=== PATIENT | female | born 1985 | race Caucasian/White ===

== ENCOUNTER 2017-05-10 22:07 | Emergency (ER) | payer SELFPAY ==
[2017-05-10 22:13] VITALS: TEMP 97.5
[2017-05-10] MEDS ORDERED: NS 500 ML IV ONE (22:15)
--- NOTE | 2017-05-10 22:15 | EDPHY ---
H & P Stated Complaint: left side CP tightness HPI/ROS: HPI CHIEF COMPLAINT: Leg chest discomfort HISTORY OF PRESENT ILLNESS: Patient very pleasant 31-year-old female she is otherwise healthy, does not take any daily medications she presents to the emergency room with left-sided chest discomfort. Patient reports to me that approximately 8 o'clock or 2 and 0.5 hr ago she was sitting on the couch resting. When all the sudden she took a deep breath in and developed some left- sided chest discomfort. She states hurts worse when you press on her left chest and this this sensation of discomfort that she has. It is reproducible on exam. The pain is located parasternal on the left side. Costochondral region. When you press there does cause pain go down her left arm. It is reproducible on exam. When she takes a deep breath in it causes her discomfort. She denies any hemoptysis. Denies fever denies nausea vomiting or diarrhea. Denies fever. Denies productive cough. Past Medical History: Denies significant medical history except for celiac disease Past Surgical History: Total hysterectomy due to stage IV endometriosis. Does have a half of right ovary left per the patient. Social History: Denies daily use of alcohol or drugs. Occasionally smokes marijuana. Denies tobacco. Family History: Noncontributory ROS REVIEW OF SYSTEMS: A comprehensive 10 point review of systems is otherwise negative aside from elements mentioned in the history of present illness. Exam Constitutional appears well nontoxic in no acute distress triage nursing summary reviewed, vital signs reviewed, awake/alert. Eyes normal conjunctivae and sclera, EOMI, PERRLA. HENT normal inspection, atraumatic, moist mucus membranes, no epistaxis, neck supple/ no meningismus, no raccoon eyes. Respiratory clear to auscultation bilaterally, normal breath sounds, no respiratory distress, no wheezing. Cardiovascular left chest wall: Along the costal sternal region there is reproducible tenderness on exam, when you press rather firmly causes pain to shoot down her left arm, reproducible on exam, rate normal, regular rhythm, no murmur, no edema, distal pulses normal. Gastrointestinal soft, non-tender, no rebound, no guarding, normal bowel sounds, no distension, no pulsatile mass. Genitourinary no CVA tenderness. Musculoskeletal no midline vertebral tenderness, full range of motion, no calf swelling, no tenderness of extremities, no meningismus, good pulses, neurovascularly intact. Skin pink, warm, & dry, no rash, skin atraumatic. Neurologic awake, alert and oriented x 3, AAOx3, moves all 4 extremities equally, motor intact, sensory intact, CN II-XII intact, normal cerebellar, normal vision, normal speech. Psychiatric normal mood/affect. Heme/Lymph/Immune no lymphadenopathy. Differential diagnosis includes but is not limited to: ACS, atypical chest pain , pneumothorax, pneumonia, pulmonary embolism, aortic dissection, congestive heart failure, tumor, musculoskeletal pain, esophageal pain, GERD, peptic ulcer disease, pancreatitis Medical Decision Making: Plan for this patient IV establishment with blood draw , EKG, threat monitoring analyst, chest x-ray, check a troponin D-dimer. Re-evaluate. Re-evaluation: 2225: Patient has declined any pain medicine here in emergency room. Most likely cause of symptoms is musculoskeletal chest wall discomfort. Will obtain chest x-ray to rule out pneumothorax, EKG D-dimer troponin. EKG interpretation by me on record in [employer] system. Impression time of EKG 2222, sinus rhythm rate of 65. No acute ischemic changes specifically no ST elevation. No ST depression. No T-wave abnormalities. Intervals are appropriate. 2329: Patient re-evaluate she has reproducible left anterior chest wall pain on exam. Declined pain medicine here in emergency room she states when she gets home she will take some Aleve. Her workup here in emergency room is been unremarkable she has a nonischemic EKG. A normal troponin a negative D-dimer and a chest x-ray does not show anything acute specifically no pneumothorax. I do feel that she has very little risk factors for cardiovascular disease she does not smoke, she is very young. Clinical presentation is consistent with anterior chest wall musculoskeletal pain. Her workup here in the ER is reassuring. Recommend anti-inflammatories at home. I did discussed return precautions with her. She understands return emergency room she develops worsening pain questions or concerns. This includes worsening pain, shortness of breath or fever. She understands. Source: Patient - Personal History LMP (Females 10-55): Hysterectomy Current Tetanus/Diphtheria Vaccine: No Current Tetanus Diphtheria and Acellular Pertussis (TDAP): No - Medical/Surgical History Hx Asthma: No Hx Chronic Respiratory Disease: No Hx Diabetes: No Hx Cardiac Disease: No Hx Renal Disease: No Hx Cirrhosis: No Hx Alcoholism: No Hx HIV/AIDS: No Hx Splenectomy or Spleen Trauma: No Other PMH: endometriosis stage 4, hysterectomy, - Social History Smoking Status: Never smoked Constitutional: Initial Vital Signs Temperature (C) 36.4 C 05/10/17 22:08 Heart Rate 64 05/10/17 22:08 Respiratory Rate 18 05/10/17 22:08 Blood Pressure 122/68 H 05/10/17 22:08 O2 Sat (%) 93 05/10/17 22:08 O2 Delivery Mode Room Air Allergies/Adverse Reactions: No Known Allergies Allergy (Unverified 05/10/17 22:13) Home Medications: Medication Instructions Recorded Adderall 10 MG (*) 05/10/17 Medical Decision Making - Diagnostics Imaging Results: Imaging Impressions Chest X-Ray 05/10/17 22:16 Impression: Negative frontal chest radiograph. - Data Points Laboratory Results: Laboratory Results 05/10/17 22:30 05/10/17 22:30 05/10/17 05/10/17 05/10/17 22:30 22:30 22:30 WBC RBC Hgb Hct MCV MCH MCHC RDW Plt Count MPV Neut % (Auto) Lymph % (Auto) Hernando % (Auto) Eos % (Auto) Baso % (Auto) Nucleat RBC Rel Count Absolute Neuts (auto) Absolute Lymphs (auto) Absolute Monos (auto) Absolute Eos (auto) Absolute Basos (auto) Absolute Nucleated RBC Immature Gran % Immature Gran # PT 13.1 SEC SEC (12.0-15.0) INR 0.97 (0.83-1.16) APTT 26.7 SEC SEC (23.0-38.0) D-Dimer < 0.27 ug/mLFEU ug/mLFEU (0.00-0.50) Sodium 137 mEq/L mEq/L (135-145) Potassium 4.0 mEq/L mEq/L (3.5-5.2) Chloride 100 mEq/L mEq/L (97-110) Carbon Dioxide 25 mEq/l mEq/l (22-31) Anion Gap 12 mEq/L mEq/L (8-16) BUN 11 mg/dL mg/dL (7-23) Creatinine 0.6 mg/dL mg/dL (0.6-1.0) Estimated GFR > 60 Glucose 88 mg/dL mg/dL (70-100) Calcium 10.0 mg/dL mg/dL (8.5-10.4) Magnesium 2.0 mg/dL mg/dL (1.6-2.3) Total Bilirubin 0.4 mg/dL mg/dL (0.1-1.4) Conjugated Bilirubin 0.2 mg/dL mg/dL (0.0-0.5) Unconjugated Bilirubin 0.2 mg/dL mg/dL (0.0-1.1) AST 25 IU/L IU/L (14-46) ALT 30 IU/L IU/L (9-52) Alkaline Phosphatase 64 IU/L IU/L (38-126) Creatine Kinase 186 IU/L H IU/L (0-156) CK-MB (CK-2) Fraction 4.00 ng/mL H ng/mL (0.00-3.19) CK-MB (CK-2) % 2.2 % % (0.0-4.0) Creatine Kinase Interp NEGATIVE (NEGATIVE) Troponin I < 0.012 ng/mL ng/mL (0.000-0.034) NT-Pro-B Natriuret Pep 62 pg/mL pg/mL (0-125) Total Protein 7.1 g/dL g/dL (6.3-8.2) Albumin 4.6 g/dL g/dL (3.5-5.0) Lipase 93 IU/L IU/L (23-300) Beta HCG, Qual NEGATIVE 05/10/17 22:30 WBC 7.67 10^3/uL 10^3/uL (3.80-9.50) RBC 4.69 10^6/uL 10^6/uL (4.18-5.33) Hgb 14.7 g/dL g/dL (12.6-16.3) Hct 42.4 % % (38.0-47.0) MCV 90.4 fL fL (81.5-99.8) MCH 31.3 pg pg (27.9-34.1) MCHC 34.7 g/dL g/dL (32.4-36.7) RDW 11.9 % % (11.5-15.2) Plt Count 326 10^3/uL 10^3/uL (150-400) MPV 9.7 fL fL (8.7-11.7) Neut % (Auto) 66.1 % % (39.3-74.2) Lymph % (Auto) 23.6 % % (15.0-45.0) Hernando % (Auto) 8.1 % % (4.5-13.0) Eos % (Auto) 0.9 % % (0.6-7.6) Baso % (Auto) 1.0 % % (0.3-1.7) Nucleat RBC Rel Count 0.0 % % (0.0-0.2) Absolute Neuts (auto) 5.07 10^3/uL 10^3/uL (1.70-6.50) Absolute Lymphs (auto) 1.81 10^3/uL 10^3/uL (1.00-3.00) Absolute Monos (auto) 0.62 10^3/uL 10^3/uL (0.30-0.80) Absolute Eos (auto) 0.07 10^3/uL 10^3/uL (0.03-0.40) Absolute Basos (auto) 0.08 10^3/uL 10^3/uL (0.02-0.10) Absolute Nucleated RBC 0.00 10^3/uL 10^3/uL (0-0.01) Immature Gran % 0.3 % % (0.0-1.1) Immature Gran # 0.02 10^3/uL 10^3/uL (0.00-0.10) PT INR APTT D-Dimer Sodium Potassium Chloride Carbon Dioxide Anion Gap BUN Creatinine Estimated GFR Glucose Calcium Magnesium Total Bilirubin Conjugated Bilirubin Unconjugated Bilirubin AST ALT Alkaline Phosphatase Creatine Kinase CK-MB (CK-2) Fraction CK-MB (CK-2) % Creatine Kinase Interp Troponin I NT-Pro-B Natriuret Pep Total Protein Albumin Lipase Beta HCG, Qual Medications Given: Discontinued Medications Sodium Chloride (Ns) 500 mls @ 0 mls/hr IV EDNOW ONE; Wide Open PRN Reason: Protocol Stop: 05/10/17 22:16 Last Admin: 05/10/17 22:46 Dose: Not Given Departure - Departure Disposition: Home, Routine, Self-Care Clinical Impression: Chest wall pain Condition: Good Instructions: Thoracic Pain (ED) Additional Instructions: 1. Rest for the next few days. 2. Take anti-inflammatory pain medicine for acute pain control. 3. Return to the emergency room if worsening pain fever vomiting questions or concerns. Referrals: Keanu Boswell MD [Primary Care Provider] - As per Instructions
--- NOTE | 2017-05-10 22:25 | CPEKG ---
Heart Rate: 65 RR Interval: 923 P-R Interval: 116 QRSD Interval: 78 QT Interval: 420 QTC Interval: 437 P Blaine: 76 QRS Blaine: 83 T Wave Blaine: 11 EKG Severity - NORMAL ECG - EKG Impression: SINUS RHYTHM Electronically Signed By: Nilesh Lopez 11-May-2017 06:59:32
[2017-05-10 22:48] LABS: PLATELET COUNT 326 10^3/uL (150-400)
[2017-05-10 22:49] VITALS: RESP 16
[2017-05-10 22:57] LABS: CREATINE KINASE 186 IU/L (0-156); INR 0.97 (0.83-1.16); PROTIME(PATIENT) 13.1 SEC (12.0-15.0)
[2017-05-11 00:06] VITALS: BP 104/80; PULSE 76; O2SAT 97
== END 2017-05-11 00:03 | disposition home or self-care (01) ==
DX: R07.89 Other chest pain (principal)